=== PATIENT | male | born 1945 | race Caucasian/White ===

== ENCOUNTER 2017-12-20 10:00 | Emergency (ER) | payer MEDICARE, OTHER, SELFPAY ==
[2017-12-20 10:10] VITALS: BP 154/78; PULSE 58; RESP 18; TEMP 36.7; O2SAT 98; BMI 29.2
--- NOTE | 2017-12-20 10:17 | DI.RAD.S_ITS ---
PROCEDURE: XR CHEST 1V INDICATIONS: Chest pain TECHNIQUE: One view of the chest was acquired. COMPARISON: [facility], , CHEST 2 VIEW, 01/07/2016, 15:17. FINDINGS: Surgical changes and devices: None. Lungs and pleura: No pleural effusions or pneumothorax. Lungs are clear. Mediastinum: Mediastinal contours appear normal. Heart size is normal. Bones and chest wall: No suspicious bony lesions. Overlying soft tissues appear unremarkable. IMPRESSION: 1. No acute cardiopulmonary disease. Dictated by: Arben Qureshi M.D. on 12/20/2017 at 10:59 Approved by: Arben Qureshi M.D. on 12/20/2017 at 10:59
--- NOTE | 2017-12-20 10:18 | ED.CHESTPAIN ---
HPI - Chest Pain General Chief Complaint: Chest Pain Stated Complaint: Nausea/Sweating Time Seen by Provider: 12/20/17 10:16 Source: patient Mode of arrival: ambulatory Limitations: no limitations History of Present Illness HPI narrative: 72-year-old male here for evaluation of not feeling well since this morning. Also describes some diaphoresis and nausea but no vomiting. States that he woke up at about 2 o'clock in the morning feeling this way. Woke up again at 4 o'clock in the morning feeling this way. Came into the Urgent Care this morning for evaluation concerned of cardiac issues. He was sent here from the walk-in clinic. States that he feels much better however does still feel ???weak ???no other infection like symptoms. Had a stress test done but that was several years ago. Denied any chest pain this morning. Took nothing for his symptoms. Related Data Home Medications Medication Instructions Recorded Confirmed aspirin 325 mg PO BID 12/20/17 12/20/17 Previous Rx's Medication Instructions Recorded frovatriptan [Frova] 2.5 mg PO SEE INSTRUCTIONS #10 tab 01/05/17 Allergies Allergy/AdvReac Type Severity Reaction Status Date / Time morphine [MORPHINE] AdvReac Mild nausea Verified 12/20/17 10:16 oxycodone [OXYCODONE] AdvReac Mild nausea Verified 12/20/17 10:16 Review of Systems Constitutional Denies chills, Reports fatigue, Denies fever(s), Reports lethargy, Reports malaise and Reports weakness ENT Ears, Nose, Mouth, and Throat: Denies dysphagia Cardiovascular Denies chest pain, Denies irregular heart rhythm, Denies lightheadedness, Denies palpitations, Denies dyspnea, Denies dyspnea on exertion and Denies orthopnea Respiratory Denies cough, Denies dyspnea, Denies dyspnea on exertion and Denies wheezing Gastrointestinal Gastrointestinal: Denies abdominal pain, Denies dysphagia, Denies heartburn, Denies diarrhea, Reports nausea and Denies vomiting Genitourinary Denies hematuria, Denies flank pain, Denies urinary incontinence and Denies urinary urgency Musculoskeletal Denies back pain, Denies muscle weakness, Denies numbness and Denies tingling Integumentary/Breasts Denies pruritus, Denies erythema, Denies rash and Denies wounds Neurologic Denies numbness, Denies tingling and Reports weakness Endocrine Reports fatigue, Denies flushing and Denies palpitations Comments: Diaphoresis Hematologic/Lymphatic Denies easy bruising Allergic/Immunologic Denies wheezing PFSH Family History Brother Age: 68 Heart disease Atrial fibrillation Social History Smoking Status: Never smoker Exam Initial Vital Signs Initial Vital Signs: Vital Signs Temperature 98.1 F 12/20/17 10:10 Pulse Rate 58 L 12/20/17 10:10 Respiratory Rate 18 12/20/17 10:10 Blood Pressure 154/78 H 12/20/17 10:10 Pulse Oximetry 98 12/20/17 10:10 Const General: cooperative and well developed Nutritional Appearance: well nourished Orientation: alert, awake, oriented x3 and not confused Chest Chest: normal inspection of the chest Resp Effort & Inspection: normal respiratory effort, able to speak in complete sentences, no respiratory distress and no use of accessory muscles Auscultation: clear to auscultation bilaterally, no rales, no rhonchi and no wheezes Cardio Rate: bradycardic Rhythm: regular rhythm Heart Sounds: no click, no gallops, no murmurs and no rubs Pulses: normal peripheral pulses GI Inspection: non-distended Palpation: soft, no hepatosplenomegaly, No guarding, No pulsatile mass and No tender Auscultation: normal bowel sounds Skin General: no rashes or lesions noted, No jaundice and No petechiae Neuro General: alert, oriented x3, gait normal and no focal motor deficits Speech: speech normal Motor: strength 5/5 throughout Sensory Exam: no sensory deficits noted Extrem General: full ROM, no clubbing, cyanosis or edema, no pedal edema and no calf tenderness Course Orders Ordered: ED Orders 12/20/17 10:17 XR chest 1V Stat EKG-12 Lead Stat 12/20/17 10:23 B Type Natriuretic Peptide Stat Complete Blood Count AUTO DIFF Stat Comprehensive Metabolic Panel Stat Lipase Stat Troponin with CK Cardiac Panel Stat Discontinued Medications Aspirin (Aspirin Chew) 324 mg PO NOW ONE Stop: 12/20/17 10:18 Last Admin: 12/20/17 10:55 Dose: Vital Signs - 8 hr 12/20/17 10:10 12/20/17 11:44 12/20/17 12:10 Temperature 98.1 F Pulse Rate 58 L 54 L 54 L Respiratory Rate 18 18 15 Blood Pressure 154/78 H Blood Pressure [Left Arm] 152/73 H 149/75 H Pulse Oximetry 98 98 99 MDM - Chest Pain Lab Data Attestation: I reviewed the patient's lab results. Result diagrams: 12/20/17 10:23 12/20/17 10:23 Lab Results 12/20/17 12/20/17 Range/Units 10:23 10:23 WBC 3.3 L (4.5-11.0) X10^3/uL RBC 4.58 (4.5-5.9) X10^6/uL Hgb 15.4 (13.5-17.5) g/dL Hct 43.3 (41-53) % MCV 94.6 (80-100) fL MCH 33.6 (26-34) PG MCHC 35.6 (30-36) % RDW 13.3 (11.6-14.8) % Plt Count 165 (150-400) X10^3/uL Neut % (Auto) 67.9 (50-75) % Lymph % (Auto) 20.5 L (25-40) % Storey % (Auto) 10.7 (3-14) % Eos % (Auto) 0.2 L (2-4) % Baso % (Auto) 0.7 (0-2) % Neut # (Auto) 2300 L (4691-5183) /uL Sodium 138 (137-145) mmol/L Potassium 4.4 (3.4-5.1) mmol/L Chloride 102.0 (98-107) mmol/L Carbon Dioxide 24.0 (22-32) mmol/L BUN 18.0 (9-20) mg/dL Creatinine 0.70 (0.66-1.25) mg/dL Estimated GFR > 60.0 (>60) mL/min BUN/Creatinine Ratio 25.7 H (6-22) Glucose 148 H (80-110) mg/dL Calcium 9.3 (8.4-10.2) mg/dL Total Bilirubin 1.0 (0.2-1.3) mg/dL AST 81 H (17-59) IU/L ALT 73 H (21-72) IU/L Alkaline Phosphatase 59 (38-126) U/L Total Creatine Kinase 191 H (55-170) U/L Troponin I < 0.012 (0.01-0.034) ng/mL B-Natriuretic Peptide 60.9 (<100) Total Protein 7.1 (6.3-8.2) g/dL Albumin 4.4 (3.5-5.0) g/dL Globulin 2.7 (1.7-4.1) g/dL Albumin/Globulin Ratio 1.6 (1.0-2.8) Lipase 79 (23-300) U/L Imaging Data Chest x-ray: Radiologist's impression: No acute cardiopulmonary findings ECG Data Attestation: I personally reviewed and interpreted this ECG as follows: Prior ECG tracings: available for review Interpretation: EKG dated 20 Dec 2017 time 1007 hr Sinus bradycardia Ventricular rate of 54 Normal axis Normal intervals QRS [address] T wave changes Comparison EKG dated 01/08/2016 Sinus rhythm Ventricular rate of 48 Incomplete right bundle branch block Normal QRS No ST T wave changes MDM Narrative Medical decision making narrative: Patient with a negative troponin and unremarkable EKG. Symptoms seem to have started at 2 o'clock this morning which is 6 hr prior to the troponin draw all today. Patient states that his symptoms have improved. He never described any chest pain. Had a discussion with the patient and his regarding his symptoms. Discussed his risks of acute coronary syndrome. We discussed his options to include being admitted to the hospital for further evaluation, stay here in the emergency department for a repeat troponin versus is going home and following up with his primary doctor. Patient states he has a follow-up with his primary doctor on Thursday. He expressed understanding of the risks and benefits of admission versus staying here in the hospital versus going home. I feel that his decision is not unreasonable given his symptoms and his EKG and negative troponin. I did emphasize that he was not 0 risk for acute coronary syndrome. He was given return precautions. He expressed understanding. Him and his expressed agreement with plan. Discharge Plan Departure Patient Disposition: Home, Self-Care Clinical Impression: Fatigue, Diaphoresis Instructions: DI for Acute Coronary Syndrome Activity Restrictions/Additional Instructions: Recommend that you keep your follow-up appointment with your primary doctor on Thursday. You opted to be discharged versus being admitted to the hospital. The discharge instructions were given are for your information regarding acute coronary syndrome. Return to the emergency department for any new symptoms, worsening symptoms, chest pain or any other concerning symptoms Prescriptions: No Action frovatriptan [Frova] 2.5 MG tablet 2.5 mg PO SEE INSTRUCTIONS Qty: 10 RF: 0 aspirin 325 mg Tablet 325 mg PO BID RF: 0
[2017-12-20 10:40] LABS: Add Manual Diff / Slide Review NO; Basophils Percent Auto 0.7 % (0-2); Eosinophils Percent Auto 0.2 % (2-4); Hematocrit 43.3 % (41-53); Hemoglobin 15.4 g/dL (13.5-17.5); Lymphocytes Percent Auto 20.5 % (25-40); Mean Corpuscular HGB Conc 35.6 % (30-36); Mean Corpuscular Hemoglobin 33.6 PG (26-34); Mean Corpuscular Volume 94.6 fL (80-100); Monocytes Percent Auto 10.7 % (3-14); Neutrophils Absolute Auto 2300 /uL (3000-5900); Neutrophils Percent Auto 67.9 % (50-75); Platelet Count 165 X10^3/uL (150-400); Red Blood Cell Count 4.58 X10^6/uL (4.5-5.9); Red Cell Distribution Width 13.3 % (11.6-14.8); White Blood Cell Count 3.3 X10^3/uL (4.5-11.0)
[2017-12-20 10:47] LABS: Alanine Aminotransferase 73 IU/L (21-72); Albumin 4.4 g/dL (3.5-5.0); Albumin Globulin Ratio 1.6 (1.0-2.8); Alkaline Phosphatase 59 U/L (38-126); Aspartate Aminotransferase 81 IU/L (17-59); BUN Creatinine Ratio 25.7 (6-22); Calcium 9.3 mg/dL (8.4-10.2); Creatine Kinase 191 U/L (55-170); Estimated Glomerular Filt Rate > 60.0 mL/min (>60); Globulin 2.7 g/dL (1.7-4.1); Glucose 148 mg/dL (80-110); HEMOLYSIS 38 (0-50); Lipase 79 U/L (23-300); Potassium 4.4 mmol/L (3.4-5.1); Sodium 138 mmol/L (137-145); Total Protein 7.1 g/dL (6.3-8.2)
[2017-12-20 10:54] LABS: B Type Natriuretic Peptide 60.9 (<100)
[2017-12-20 11:34] LABS: Troponin I < 0.012 ng/mL (0.01-0.034)
[2017-12-20 11:44] VITALS: BP 152/73; PULSE 54; RESP 18; O2SAT 98
[2017-12-20 12:10] VITALS: BP 149/75; PULSE 54; RESP 15; O2SAT 99
[2017-12-20 12:32] VITALS: BP 145/80; PULSE 57; RESP 14; O2SAT 98
[2017-12-20 12:50] VITALS: BP 145/80; PULSE 55; RESP 18; O2SAT 98
== END 2017-12-20 12:52 | disposition home or self-care (01) ==
PROVIDERS: Emergency Provider Emergency Medicine; Family Provider Family Medicine; PCP Family Medicine
DX: R53.83 Other fatigue (principal); R61 Generalized hyperhidrosis
CPT/HCPCS: 36591; 71045; 80053; 82550; 82553; 83690; 83880; 84484; 85025; 93005; 99283; 99285

== ENCOUNTER → 2018-04-14 17:31 | Outpatient (CLI) | payer MEDICARE, OTHER, SELFPAY ==
--- NOTE | 2018-04-14 17:33 | DI.MRI.S_ITS ---
PROCEDURE: MR LUMBAR SPINE WO CON INDICATIONS: INJURY OF CAUDA EQUINA TECHNIQUE: Noncontrast sagittal T1 spin echo and T2 fast echo, sagittal STIR, axial T1 and T2 fast spin echo through the lumbar spine. In cases with scoliosis, additional coronal T2 fast spin echo may be performed. COMPARISON: None. FINDINGS: Image quality: Excellent. Alignment and Curvature: There is minimal retrolisthesis of L1 on L2. Bone Marrow: Degenerative endplate signal changes are present. Mild loss of vertebral body height of L1 with no marrow edema, likely chronic. Spinal Cord: Conus medullaris terminates at the L1-L2 level. Visualized cord demonstrates normal signal and size. Paraspinous Soft Tissues: No paravertebral masses. L1-L2: Mild loss of disc height. Moderate disc desiccation. There is posterior disc bulge and disc osteophyte complex. Mild bilateral facet arthropathy and hypertrophy of ligamentum flavum. The central canal is minimally narrowed. Mild bilateral foraminal stenosis. L2-L3: Preserved disc height. Moderate disc desiccation. There is mild posterior disc bulge. Severe bilateral facet arthropathy and moderate hypertrophy of ligamentum flavum. The central canal is moderately narrowed. Mild bilateral foraminal stenosis. L3-L4: Discectomy and posterior fusion. There is mild posterior osteophyte. The central canal is mildly narrowed. No foraminal stenosis. L4-L5: Posterior fusion. Moderate loss of disc height and disc desiccation. There is posterior disc bulge and disc osteophyte complex. The central canal is patent. Mild bilateral foraminal stenosis. L5-S1: Preserved disc height and moderate disc desiccation. There is posterior disc bulge and disc osteophyte complex. Severe bilateral facet arthropathy. The central canal is moderately narrowed. Mild bilateral foraminal stenosis. IMPRESSION: 1. Multilevel degenerative disc disease, facet arthropathy, and postsurgical changes in lumbar spine as described. 2. Moderate central canal stenosis at L2-L3 and L5-S1. 3. Multilevel foraminal stenosis as described. Dictated by: Keenan Renae M.D. on 04/15/2018 at 10:09 Approved by: Keenan Renae M.D. on 04/15/2018 at 11:57
== END ==
PROVIDERS: Family Provider Family Medicine; PCP Family Medicine; Visit Provider Internal Medicine
DX: S34.3XXA Injury of cauda equina, initial encounter (principal); M51.36 Other intervertebral disc degeneration, lumbar region; M48.062 Spinal stenosis, lumbar region with neurogenic claudication; M51.37 Other intervertebral disc degeneration, lumbosacral region; G95.19 Other vascular myelopathies; M48.07 Spinal stenosis, lumbosacral region; Z98.1 Arthrodesis status
CPT/HCPCS: 72148

== ENCOUNTER → 2018-04-19 09:56 | Outpatient (CLI) | payer MEDICARE, OTHER, SELFPAY ==
[2018-04-19 10:35] LABS: Add Manual Diff / Slide Review NO; Basophils Percent Auto 0.8 % (0-2); Hematocrit 49.6 % (41-53); Hemoglobin 17.2 g/dL (13.5-17.5); Lymphocytes Percent Auto 30.3 % (25-40); Mean Corpuscular HGB Conc 34.7 % (30-36); Mean Corpuscular Hemoglobin 32.8 PG (26-34); Mean Corpuscular Volume 94.4 fL (80-100); Monocytes Percent Auto 12.3 % (3-14); Neutrophils Absolute Auto 2300 /uL (3000-5900); Neutrophils Percent Auto 55.6 % (50-75); Platelet Count 232 X10^3/uL (150-400); Red Blood Cell Count 5.25 X10^6/uL (4.5-5.9); Red Cell Distribution Width 13.5 % (11.6-14.8); White Blood Cell Count 4.2 X10^3/uL (4.5-11.0)
== END ==
PROVIDERS: PCP Family Medicine; Visit Provider Neurological Surgery
DX: M54.16 Radiculopathy, lumbar region (principal); M48.062 Spinal stenosis, lumbar region with neurogenic claudication; Z01.818 Encounter for other preprocedural examination
CPT/HCPCS: 36415; 85025; 93005

== ENCOUNTER 2018-08-19 12:38 | Day surgery (SDC) | payer MEDICARE, OTHER, SELFPAY ==
[2018-08-19] MEDS: PROPARACAINE 0.5% OPHTH SOL 2 DROPS EYE-OP (13:14)
[2018-08-19 13:15] VITALS: BMI 29.8
[2018-08-19] MEDS: CATARACT EYE COMPOUND (10 DROPS/SYRINGE) 3 DROPS EYE-OP (13:20)
[2018-08-19 13:21] VITALS: BP 150/88; PULSE 85; RESP 18; TEMP 35.9; O2SAT 97
--- NOTE | 2018-08-19 14:07 | PM.PREOP ---
Pre-operative Note Interval Note History & Physical reviewed/Exam performed by Physician: Yes Changes to H&P: No
[2018-08-19] MEDS: CHONDROIDTIN/SOD HYALURONATE 1.05 ML SYRINGE INTRAOCULA (14:40)
[2018-08-19] MEDS: MOXIFLOXACIN OPHTH DROPS 3 ML BOTTLE 2 DROPS INJ (14:40)
[2018-08-19] MEDS: PHENYLEPHRINE/LIDOCAINE VIAL (OR) 0.2 ML EYE-OP (14:41)
[2018-08-19] MEDS: BALANCED SALT IRRIG SOLN NO.2 500 ML, EPINEPHrine 1 MG IRR (14:42)
[2018-08-19] MEDS: BALANCED SALT IRRIG SOLN NO.2 15 ML IRR (14:43)
[2018-08-19] MEDS: LIDOCAINE 2% INJ SDV 0.5 ML TOP (14:44)
--- NOTE | 2018-08-19 14:54 | PM.OP.1 ---
Procedure & Clinicians Procedure: cataract extraction with intraocular lens implant left Same procedure as scheduled: Yes Indications: Nuclear sclerosis visually significant cataract, left Surgeon: Higinio Vides Operative Notes Procedure in detail: The patient was brought to the operating suite. The correct patient, surgical site and lens were confirmed. 0.5 % tetracaine drops were placed in the left eye. The patient was prepped and draped in the typical sterile manner. A lid speculum was placed in the eye. A paracentesis port was created with a side-port blade. 0.1 mL of 1% preservative free lidocaine with phenylephrine was injected into the anterior chamber. Viscoelastic was injected into the anterior chamber. A 2.6mm keratome was used to create a clear corneal temporal incision. Cystotome and Utrata forceps were used to create a continuous curvilinear capsulorrhexis. Balanced salt solution was used to hydrodissect the nucleus. Phacoemulsification was used to remove the lens. The capsular bag was inflated with viscoelastic. A Oliva ZBOO +21.5D lens was inserted into the capsule. Viscoelastic was removed and the wound hydrated. The wound was found to be leak free and the eye was assessed to be at normal physiologic pressure. 0.1mL Vigamox was injected into the anterior chamber. The lid speculum was removed and the patient left the operating room in excellent condition. Complications: none Condition: stable Disposition: same day surgery
[2018-08-19 15:00] VITALS: BP 153/95; PULSE 63; RESP 16; TEMP 36.3; O2SAT 98
== END 2018-08-19 15:15 ==
PROVIDERS: Family Provider Family Medicine; PCP Family Medicine; Visit Provider Ophthalmology
DX: H25.12 Age-related nuclear cataract, left eye (principal); G43.909 Migraine, unspecified, not intractable, without status migrainosus; I49.8 Other specified cardiac arrhythmias; B39.9 Histoplasmosis, unspecified
CPT/HCPCS: J0171; J2250; J3010

== ENCOUNTER 2018-09-02 13:27 | Day surgery (SDC) | payer MEDICARE, OTHER, SELFPAY ==
[2018-09-02 14:32] VITALS: BP 155/99; PULSE 70; RESP 16; TEMP 36.8; O2SAT 96; BMI 29.8
[2018-09-02] MEDS: PROPARACAINE 0.5% OPHTH SOL 2 DROPS EYE-OP (14:35)
[2018-09-02] MEDS: CATARACT EYE COMPOUND (10 DROPS/SYRINGE) 3 DROPS EYE-OP (14:37)
--- NOTE | 2018-09-02 15:13 | PM.PREOP ---
Pre-operative Note Interval Note History & Physical reviewed/Exam performed by Physician: Yes Changes to H&P: No
[2018-09-02] MEDS: PHENYLEPHRINE/LIDOCAINE VIAL (OR) 0.2 ML EYE-OP (15:30)
[2018-09-02] MEDS: MOXIFLOXACIN OPHTH DROPS 3 ML BOTTLE 2 DROPS INJ (15:30)
[2018-09-02] MEDS: CHONDROIDTIN/SOD HYALURONATE 1.05 ML SYRINGE INTRAOCULA (15:30)
[2018-09-02] MEDS: BALANCED SALT IRRIG SOLN NO.2 500 ML, EPINEPHrine 1 MG IRR (15:31)
[2018-09-02] MEDS: TETRACAINE 0.5% OPHTH DROPS 4 ML 2 DROPS EYE-RIGHT (15:31)
[2018-09-02] MEDS: LIDOCAINE 2% INJ SDV 5 ML INJ (15:32)
--- NOTE | 2018-09-02 15:50 | PM.OP.1 ---
Procedure & Clinicians Procedure: cataract extraction with intraocular lens implant, right Same procedure as scheduled: Yes Indications: 3+nuclear sclerosis, visually significant, right Surgeon: Higinio Vides Click Yes if Unassisted: Yes Anesthesia Type: MAC +/- Operative Notes Procedure in detail: The patient was brought to the operating suite. The correct patient, surgical site and lens were confirmed. 0.5 % tetracaine drops were placed in the right eye. The patient was prepped and draped in the typical sterile manner. A lid speculum was placed in the eye. 2% lidocaine was placed on the eye. A paracentesis port was created with a side-port blade. 0.1 mL of 1% preservative free lidocaine with phenylephrine was injected into the anterior chamber. Viscoelastic was injected into the anterior chamber. A 2.6mm keratome was used to create a clear corneal temporal incision. Cystotome and Utrata forceps were used to create a continuous curvilinear capsulorrhexis. Balanced salt solution was used to hydrodissect the nucleus. A Ray nucleus chopper and phacoemulsification was used to remove the lens. The capsular bag was inflated with viscoelastic. A Oliva ZBOO +21.5D lens was inserted into the capsule. Viscoelastic was removed and the wound hydrated. The wound was found to be leak free and the eye was assessed to be at normal physiologic pressure. 0.1mL Vigamox was injected into the anterior chamber. The lid speculum was removed and the patient left the operating room in excellent condition. Complications: none Condition: stable Disposition: same day surgery
[2018-09-02 16:07] VITALS: BP 157/85; PULSE 71; RESP 16; TEMP 36.7; O2SAT 96
== END 2018-09-02 16:14 ==
LOC: OR 13:30
PROVIDERS: Family Provider Family Medicine; PCP Family Medicine; Visit Provider Ophthalmology
DX: H25.11 Age-related nuclear cataract, right eye (principal)
CPT/HCPCS: J0171; J2250; J3010

== ENCOUNTER → 2018-10-21 16:35 | Outpatient (CLI) | payer MEDICARE, OTHER, SELFPAY | PROVIDERS: Family Provider Family Medicine; PCP Family Medicine; Visit Provider Family Medicine | DX: R19.7 Diarrhea, unspecified (principal) ==

== ENCOUNTER → 2018-10-21 16:42 | Outpatient (CLI) | payer MEDICARE, OTHER, SELFPAY | PROVIDERS: Family Provider Family Medicine; PCP Family Medicine; Visit Provider Family Medicine ==

== ENCOUNTER → 2018-10-22 13:46 | Outpatient (CLI) | payer MEDICARE, OTHER, SELFPAY ==
[2018-10-22 23:15] LABS: Adenovirus F 40/41 Not Detected (Not Detect); Astrovirus Not Detected (Not Detect); Campylobacter Not Detected (Not Detect); Clostridium difficile toxin AB Not Detected (Not Detect); Cryptosporidium Not Detected (Not Detect); Cyclospora cayetanensis Not Detected (Not Detect); Entamoeba histolytica Not Detected (Not Detect); Enteroaggregative E.coli Not Detected (Not Detect); Enteropathogenic E.coli Not Detected (Not Detect); Enterotoxigenic E.coli It/st Not Detected (Not Detect); Giardia lamblia Not Detected (Not Detect); Norovirus GI/GII Not Detected (Not Detect); Plesiomonsa shigelloides Not Detected (Not Detect); Rotavirus A Not Detected (Not Detect); Salmonella Not Detected (Not Detect); Sapovirus Not Detected (Not Detect); Shiga-like toxin-prod E.coli Not Detected (Not Detect); Shigella/Enteroinvasive E.coli Not Detected (Not Detect); Vibrio Not Detected (Not Detect); Vibrio cholerae Not Detected (Not Detect); Yersinia enterocolitica Not Detected (Not Detect)
== END ==
PROVIDERS: PCP Family Medicine; Visit Provider Family Medicine
DX: R19.7 Diarrhea, unspecified (principal)
CPT/HCPCS: 87507

== ENCOUNTER → 2018-10-28 10:06 | Outpatient (CLI) | payer MEDICARE, OTHER, SELFPAY ==
[2018-10-28 11:30] LABS: C-Reactive Protein Quant < 0.5 mg/dL (<1.0)
[2018-10-28 11:32] LABS: Erythrocyte Sedimentation Rate 3 MM/HR (0-15)
[2018-10-31 21:11] LABS: (tTG) Ab, IgA < 1 U/mL
== END ==
PROVIDERS: PCP Family Medicine; Visit Provider Family Medicine
DX: R19.4 Change in bowel habit (principal)
CPT/HCPCS: 36415; 83516; 85651; 86140; 86255

== ENCOUNTER → 2018-12-20 09:50 | Outpatient (CLI) | payer MEDICARE, OTHER, SELFPAY ==
[2018-12-20 11:37] LABS: Add Manual Diff / Slide Review NO; Basophils Absolute Auto 0 /uL (0-100); Eosinophils Absolute Auto 0 /uL (0-450); Eosinophils Percent Auto 0.7 % (2-4); Hematocrit 47.3 % (41-53); Hemoglobin 16.3 g/dL (13.5-17.5); Lymphocytes Absolute Auto 1200 /uL (1100-4500); Lymphocytes Percent Auto 34.5 % (25-40); Mean Corpuscular HGB Conc 34.5 % (30-36); Mean Corpuscular Hemoglobin 33.5 PG (26-34); Monocytes Absolute Auto 500 /uL (0-900); Monocytes Percent Auto 13.3 % (3-14); Neutrophils Absolute Auto 1700 /uL (1500-7000); Neutrophils Percent Auto 50.5 % (50-75); Platelet Count 223 X10^3/uL (150-400); Red Blood Cell Count 4.87 X10^6/uL (4.5-5.9); Red Cell Distribution Width 13.3 % (11.6-14.8); White Blood Cell Count 3.4 X10^3/uL (4.5-11.0)
[2018-12-20 12:03] LABS: Alanine Aminotransferase 61 IU/L (21-72); Albumin 4.5 g/dL (3.5-5.0); Albumin Globulin Ratio 1.6 (1.0-2.8); Alkaline Phosphatase 62 U/L (38-126); Aspartate Aminotransferase 71 IU/L (17-59); BUN Creatinine Ratio 18.6 (6-22); Blood Urea Nitrogen 13 mg/dL (9-20); Calcium 9.6 mg/dL (8.4-10.2); Carbon Dioxide 29 mmol/L (22-32); Chloride 102 mmol/L (98-107); Cholesterol 226 mg/dL (140-199); Estimated Glomerular Filt Rate > 60.0 mL/min (>60); Globulin 2.8 g/dL (1.7-4.1); Glucose 100 mg/dL (80-110); HDL Cholesterol 64 mg/dL (40-60); HEMOLYSIS < 15 (0-50); LDL Cholesterol Calculated 147 mg/dL (<100); Potassium 4.5 mmol/L (3.4-5.1); Sodium 139 mmol/L (137-145); Total Protein 7.3 g/dL (6.3-8.2); Triglycerides 77 mg/dL (35-150)
[2018-12-20 12:34] LABS: Thyroid Stimulating Hormone 1.44 uIU/mL (0.47-4.68)
== END ==
PROVIDERS: PCP Family Medicine; Visit Provider Family Medicine
DX: Z12.5 Encounter for screening for malignant neoplasm of prostate (principal); Z13.220 Encounter for screening for lipoid disorders; Z13.29 Encounter for screening for other suspected endocrine disorder; Z13.6 Encounter for screening for cardiovascular disorders
CPT/HCPCS: 36415; 80053; 80061; 84443; 85025; G0103

== ENCOUNTER → 2020-01-09 11:11 | Outpatient (CLI) | payer MEDICARE, OTHER, SELFPAY ==
[2020-01-09 12:01] LABS: Add Manual Diff / Slide Review NO; Basophils Absolute Auto 0 /uL (0-100); Basophils Percent Auto 0.5 % (0-2); Eosinophils Absolute Auto 0 /uL (0-450); Eosinophils Percent Auto 0.7 % (2-4); Hemoglobin 14.8 g/dL (13.5-17.5); Lymphocytes Absolute Auto 1100 /uL (1100-4500); Lymphocytes Percent Auto 31.6 % (25-40); Mean Corpuscular HGB Conc 35.1 % (30-36); Mean Corpuscular Hemoglobin 34.3 PG (26-34); Mean Corpuscular Volume 97.8 fL (80-100); Monocytes Absolute Auto 400 /uL (0-900); Monocytes Percent Auto 12.1 % (3-14); Neutrophils Absolute Auto 1900 /uL (1500-7000); Neutrophils Percent Auto 55.1 % (50-75); Platelet Count 187 X10^3/uL (150-400); Red Cell Distribution Width 13.1 % (11.6-14.8); White Blood Cell Count 3.5 X10^3/uL (4.5-11.0)
[2020-01-09 12:17] LABS: Alanine Aminotransferase 65 IU/L (<50); Albumin 4.3 g/dL (3.5-5.0); Albumin Globulin Ratio 1.7 (1.0-2.8); Alkaline Phosphatase 46 U/L (38-126); Aspartate Aminotransferase 91 IU/L (17-59); BUN Creatinine Ratio 22.4 (6-22); Blood Urea Nitrogen 17 mg/dL (9-20); Calcium 9.4 mg/dL (8.4-10.2); Carbon Dioxide 25 mmol/L (22-32); Chloride 106 mmol/L (98-107); Cholesterol 177 mg/dL (140-199); Estimated Glomerular Filt Rate > 60.0 mL/min (>60); Globulin 2.6 g/dL (1.7-4.1); Glucose 96 mg/dL (80-110); HDL Cholesterol 72 mg/dL (40-60); HEMOLYSIS < 15 (0-50); LDL Cholesterol Calculated 96 mg/dL (<100); Potassium 4.3 mmol/L (3.4-5.1); Sodium 138 mmol/L (137-145); Total Protein 6.9 g/dL (6.3-8.2); Triglycerides 45 mg/dL (35-150)
[2020-01-09 12:57] LABS: TSH w/ Reflex to FT4 1.88 uIU/mL (0.47-4.68)
== END ==
PROVIDERS: PCP Family Medicine; Referring Provider Family Medicine; Visit Provider Family Medicine
DX: E78.2 Mixed hyperlipidemia (principal); I10 Essential (primary) hypertension
CPT/HCPCS: 36415; 80053; 80061; 84443; 85025

== ENCOUNTER → 2020-08-28 10:35 | Outpatient (CLI) | payer MEDICARE, OTHER, SELFPAY ==
[2020-08-28] MEDS: COVID-19 VACC #1, MRNA(MOD) 100 MCG/0.5 ML VIAL IM (10:41)
== END ==
PROVIDERS: PCP Family Medicine; Visit Provider Internal Medicine
DX: Z23 Encounter for immunization (principal)
CPT/HCPCS: 0011A; 91301

== ENCOUNTER → 2020-09-25 10:38 | Outpatient (CLI) | payer MEDICARE, OTHER, SELFPAY ==
[2020-09-25] MEDS: COVID-19 VACC #2, MRNA(MOD) 100 MCG/0.5 ML VIAL IM (10:47)
== END ==
PROVIDERS: PCP Family Medicine; Visit Provider Internal Medicine
DX: Z23 Encounter for immunization (principal)
CPT/HCPCS: 0012A; 91301

== ENCOUNTER → 2021-03-15 15:25 | Outpatient (CLI) | payer MEDICARE, OTHER, SELFPAY ==
--- NOTE | 2021-03-15 15:28 | DI.RAD.S_ITS ---
PROCEDURE: XR CHEST 2V INDICATIONS: cough TECHNIQUE: 2 views of the chest were acquired. COMPARISON: [facility], CR, XR CHEST 1V, 12/20/2017, 10:21. FINDINGS: Surgical changes and devices: None. Lungs and pleura: Lungs are clear. No pleural effusions or pneumothorax. Mediastinum: There is slight perihilar prominence particularly on the left. Heart size is normal. Bones and chest wall: No suspicious bony abnormalities. Soft tissues appear unremarkable. IMPRESSION: Perihilar prominence particularly on the left. While this could be secondary to rotation, adenopathy cannot be excluded. Recommend clinical correlation and CT chest as indicated for further evaluation. Dictated by: Mari Smith M.D. on 03/15/2021 at 16:25 Approved by: Mari Smith M.D. on 03/15/2021 at 16:27
== END ==
PROVIDERS: PCP Family Medicine; Referring Provider Family Medicine; Visit Provider Family Medicine
DX: R05 Cough (principal)
CPT/HCPCS: 71046

== ENCOUNTER → 2021-03-22 10:50 | Outpatient (CLI) | payer MEDICARE, OTHER, SELFPAY ==
[2021-03-22 11:48] LABS: Hemoglobin 15.3 g/dL (13.5-17.5)
[2021-03-22 12:07] LABS: BUN Creatinine Ratio 21.3 (6-22); Blood Urea Nitrogen 16 mg/dL (9-20); Estimated Glomerular Filt Rate > 60.0 mL/min (>60)
--- NOTE | 2021-03-22 12:36 | DI.CT.S_ITS ---
PROCEDURE: CT CHEST ABDOMEN W CON INDICATIONS: abnormal chest xray TECHNIQUE: After the administration of oral contrast and intravenous contrast, 5 mm thick sections acquired from the lung apices to the iliac crests. 5 mm coronal and sagittal reformats were performed, with additional 7 mm coronal MIP reformats through the lungs. For radiation dose reduction, the following was used: automated exposure control, adjustment of mA and/or kV according to patient size. COMPARISON: [facility], CR, XR CHEST 1V, 12/20/2017, 10:21. [facility], CR, XR CHEST 2V, 03/15/2021, 15:32. FINDINGS: Image quality: Excellent. CHEST: Lungs and pleura: Left hilar prominence seen on the chest x-ray is likely caused by tortuous central pulmonary vasculature. No left hilar mass. No acute air space opacities. Subpleural densities in the lingula and both lower lobes are likely scars and atelectasis. There are small nodules or nodularity along the left major fissure. No pleural effusions or pneumothorax. Central and peripheral airways are patent and normal in caliber. Mediastinum: Heart size is normal. No pericardial effusion. No mediastinal or hilar adenopathy by size criteria. Thoracic aorta and central pulmonary arteries are normal in size. Esophagus is normal in caliber. Small hiatal hernia. Chest wall: No axillary or supraclavicular adenopathy by size criteria. Thyroid gland is normal . ABDOMEN: Solid organs: Liver is normal in size and enhancement. There is hepatic steatosis. Gallbladder is normal. Biliary system is non dilated. Pancreas enhances normally. Spleen is normal in size and enhancement. No adrenal nodules. Kidneys are normal in size and enhancement, without hydronephrosis. There is a 4 mm nonobstructive stone in left kidney and a 4 mm nonobstructive stone in right kidney. Peritoneum and bowel: Mild gastric antral thickening is likely caused by artifact from peristalsis. Bowel loops demonstrate normal wall thickness and caliber. Diverticulosis without diverticulitis. No free fluid or air. Nodes and vessels: No retroperitoneal or mesenteric adenopathy by size criteria. Aorta and inferior vena cava are normal in caliber. Moderate atherosclerotic calcification. Bones: No suspicious bony lesions. No vertebral body compression fractures. There are degenerative and postsurgical changes in lumbar spine. Miscellaneous: No ventral hernias. IMPRESSION: 1. No left perihilar mass. The left hilar prominence seen on chest x-ray is likely secondary to tortuous central pulmonary vasculature. 2. Lingular and both lower lobe scars and atelectasis. 3. Diverticulosis without diverticulitis. 4. Small nonobstructive renal calculi bilaterally. 5. Hepatic steatosis. 6. Small hiatal hernia. Dictated by: Keenan Renae M.D. on 03/22/2021 at 16:10 Approved by: Keenan Renae M.D. on 03/22/2021 at 16:19
== END ==
PROVIDERS: PCP Family Medicine; Referring Provider Family Medicine; Visit Provider Family Medicine
DX: R05 Cough (principal); R93.89 Abnormal findings on diagnostic imaging of other specified body structures; Z01.812 Encounter for preprocedural laboratory examination; J98.4 Other disorders of lung; J98.11 Atelectasis; K76.0 Fatty (change of) liver, not elsewhere classified; N20.0 Calculus of kidney; K57.90 Diverticulosis of intestine, part unspecified, without perforation or abscess without bleeding; K44.9 Diaphragmatic hernia without obstruction or gangrene
CPT/HCPCS: 36415; 71260; 74160; 82565; 84520; 85018

== ENCOUNTER → 2021-04-22 09:42 | Outpatient (CLI) | payer MEDICARE, OTHER, SELFPAY ==
[2021-04-22 11:10] LABS: Add Manual Diff / Slide Review NO; Basophils Absolute Auto 0 /uL (0-100); Basophils Percent Auto 0.6 % (0-2); Eosinophils Absolute Auto 0 /uL (0-450); Eosinophils Percent Auto 1.4 % (2-4); Hematocrit 46.1 % (41-53); Hemoglobin 15.6 g/dL (13.5-17.5); Lymphocytes Absolute Auto 800 /uL (1100-4500); Lymphocytes Percent Auto 29.9 % (25-40); Mean Corpuscular HGB Conc 33.8 % (30-36); Mean Corpuscular Hemoglobin 33.3 PG (26-34); Mean Corpuscular Volume 98.5 fL (80-100); Monocytes Absolute Auto 300 /uL (0-900); Monocytes Percent Auto 11.9 % (3-14); Neutrophils Absolute Auto 1600 /uL (1500-7000); Neutrophils Percent Auto 56.2 % (50-75); Platelet Count 182 X10^3/uL (150-400); Red Blood Cell Count 4.68 X10^6/uL (4.5-5.9); Red Cell Distribution Width 13.4 % (11.6-14.8); White Blood Cell Count 2.8 X10^3/uL (4.5-11.0)
[2021-04-22 12:41] LABS: Alanine Aminotransferase 40 IU/L (<50); Albumin 4.4 g/dL (3.5-5.0); Albumin Globulin Ratio 1.7 (1.0-2.8); Alkaline Phosphatase 59 U/L (38-126); Aspartate Aminotransferase 59 IU/L (17-59); BUN Creatinine Ratio 20.5 (6-22); Bilirubin Total 0.8 mg/dL (0.2-1.3); Blood Urea Nitrogen 15 mg/dL (9-20); Calcium 9.4 mg/dL (8.4-10.2); Carbon Dioxide 30 mmol/L (22-32); Chloride 105 mmol/L (98-107); Cholesterol 201 mg/dL (140-199); Estimated Glomerular Filt Rate > 60.0 mL/min (>60); Globulin 2.6 g/dL (1.7-4.1); Glucose 110 mg/dL (80-110); HDL Cholesterol 81 mg/dL (40-60); HEMOLYSIS < 15 (0-50); LDL Cholesterol Calculated 110 mg/dL (<100); Potassium 4.5 mmol/L (3.4-5.1); Sodium 139 mmol/L (137-145); Triglycerides 52 mg/dL (35-150)
[2021-04-22 13:11] LABS: TSH w/ Reflex to FT4 1.46 uIU/mL (0.47-4.68)
== END ==
PROVIDERS: PCP Family Medicine; Referring Provider Family Medicine; Visit Provider Family Medicine
DX: E78.2 Mixed hyperlipidemia (principal); I10 Essential (primary) hypertension; R74.8 Abnormal levels of other serum enzymes
CPT/HCPCS: 36415; 80053; 80061; 84443; 85025

== ENCOUNTER 2021-11-24 10:05 | Emergency (ER) | payer MEDICARE, OTHER, SELFPAY ==
[2021-11-24 10:12] VITALS: BP 146/88; PULSE 69; RESP 16; TEMP 36.7; O2SAT 98; BMI 28.3
--- NOTE | 2021-11-24 10:20 | PC.NURSE ---
Patient fell hitting face on dock cart. Laceration to bridge of nose and bruising with swelling notted between eyes and right inner eye. Patine not tender upon palpation of C-spine, denies LOC. Reports significant bleeding at time of injury, has slowed down upon arriving to ER. Patient takes full dose aspirin daily. TDAP up to date
--- NOTE | 2021-11-24 12:17 | DI.CT.S_ITS ---
PROCEDURE: CT CERVICAL SPINE WO CON INDICATIONS: fall, hit head, neck pain to palpation TECHNIQUE: Noncontrast 3 mm thick sections acquired from the skull base to the T4 level. Sagittal and coronal reformats were then constructed. For radiation dose reduction, the following was used: automated exposure control, adjustment of mA and/or kV according to patient size. COMPARISON: None. FINDINGS: Image quality: Excellent. Bones: No fractures or dislocations. Visualized superior ribs are intact. Multilevel degenerative disc disease and arthropathy in the mid to lower cervical spine results in reversal the normal cervical lordosis and grade 1 anterior spondylolisthesis at C 3 4. At least moderate central stenosis present C5-6 and C6-7 Soft tissues: Prevertebral soft tissues are normal in thickness. No paravertebral hematomas. No apical pneumothoraces. IMPRESSION: 1. No evidence of fracture or traumatic malalignment. 2. Multilevel degenerative disc disease and arthropathy results in reversal the normal cervical lordosis as well as moderate central stenosis C5-6 and C6-7 Approved by: Shane Iverson M.D. on 11/24/2021 at 12:02
--- NOTE | 2021-11-24 12:17 | DI.CT.S_ITS ---
PROCEDURE: CT HEAD/BRAIN WO CON INDICATIONS: fall, hit head TECHNIQUE: Noncontrast 4.5 mm thick angled axial sections acquired from the foramen magnum to the vertex, with coronal and sagittal reformats. For radiation dose reduction, the following was used: automated exposure control, adjustment of mA and/or kV according to patient size. COMPARISON: None. FINDINGS: Image quality: Excellent. CSF spaces: Basal cisterns are patent. No extra-axial fluid collections. Ventricles are normal in size and shape. Brain: No midline shift. No intracranial masses or hemorrhage. Valle-white matter interface is normal. Moderate cerebral and cerebellar volume loss with multifocal white matter chronic ischemic change noted. Moderate calcified atherosclerotic plaque noted involving the cavernous portions of both internal carotid arteries. Skull and face: Calvarium and visualized facial bones are intact, without suspicious lesions. Comminuted nasal bone fracture with overlying soft tissue hematoma noted. Bilateral hearing aids present. Sinuses: Visualized sinuses and mastoids are clear. IMPRESSION: Comminuted and nasal bone fracture in overlying soft tissue hematoma. No intracranial hemorrhage or mass effect. Approved by: Shane Iverson M.D. on 11/24/2021 at 11:58
[2021-11-24] MEDS: HYDROCODONE/ACET 5/325 TABLET 1 TAB PO (13:02)
--- NOTE | 2021-11-24 14:26 | ED.GENADULT ---
HPI - General Adult General Chief complaint: Nasal Problem Stated complaint: Hit nose on edge of dock cart- thinks broken Time Seen by Provider: 11/24/21 12:11 Mode of arrival: Family Vehicle History of Present Illness HPI narrative: 76-year-old gentleman with a history of asthma, hypertension was stepping off of his boat onto a step, with standing on his shoe lace and when he went to take another step he fell forward hit his nose right side of his forehead and is complaining of neck pain. He has some minor epistaxis from the left side of his nose and some midline tenderness over the cervical spine. He did not lose consciousness. This was absolutely mechanical fall. He otherwise is not complaining of fever, cough, chest pain, palpitations, dyspnea, vomiting, nausea, abdominal pain, headaches. He reports no musculoskeletal injuries or extremity pain were abrasions secondary to this fall. Related Data Home Medications Medication Instructions Recorded Confirmed aspirin 325 mg tablet 325 mg PO BID 12/20/17 01/09/20 frovatriptan 2.5 mg tablet (Frova) 2.5 mg PO ONCE PRN 08/19/18 01/09/20 Previous Rx's Medication Instructions Recorded albuterol sulfate 90 mcg/actuation 2 puff INHALATION Q6H PRN #8.5 g 03/15/21 aerosol inhaler (Proventil HFA) losartan 50 mg tablet See Rx Instructions .ROUTE 10/14/21 .COMPLEX #90 tab hydrocodone 5 mg-acetaminophen 325 1 tab PO Q6-8H PRN #14 tab 11/24/21 mg tablet Allergies Allergy/AdvReac Type Severity Reaction Status Date / Time morphine [MORPHINE] AdvReac Mild nausea Verified 11/24/21 10:15 oxycodone [OXYCODONE] AdvReac Mild nausea Verified 11/24/21 10:15 Review of Systems Review of Systems Narrative: Remainder of complete review of systems is otherwise unremarkable except for that included in the HPI. Patient History Medical History (Updated 11/24/21 @ 14:38 by Aliya Wan MD) Chronic cough Essential hypertension Mixed hyperlipidemia Family History Brother Age: 72 Heart disease Atrial fibrillation Social History marital status: household members: spouse Smoking Status: Former smoker alcohol intake: current (1-2 A DAY ) substance use type: does not use Smoking Status: Former smoker alcohol intake frequency: 3 or more drinks per day Substance Use Type: does not use Exam Initial Vital Signs Initial Vital Signs: Vital Signs Temperature 98.0 F 11/24/21 10:12 Pulse Rate 69 11/24/21 10:12 Respiratory Rate 16 11/24/21 10:12 Blood Pressure 146/88 H 11/24/21 10:12 Pulse Oximetry 98 11/24/21 10:12 General: Healthy appearing, in no acute distress. Able to give a complete and coherent history. Well-nourished well-developed HEENT: Moist mucous membranes, normal sclera with reactive pupils, contusion over the right brow, small laceration over the bridge of his nose and just lateral to the nose from his eyeglasses. Slightly displaced nasal septum with minor bleeding from the left nare. Contusion to the buccal surface of the upper lip without overt laceration or dental injury her Neck: Tender along the midline cervical spine C3-C5 with trapezius muscle spasm and tenderness into the occipital insertions bilaterally Respiratory: Lungs are clear to auscultation, no wheezing no rales no rhonchi. Full and symmetrical air movement Cardiac: Regular rate and rhythm no murmurs no bruits Abdomen: Soft, nontender, good bowel tones, no flank pain Skin: Warm and dry, no rashes Neurologic: Grossly neurologically intact with no obvious asymmetries or abnormalities Extremities: No trauma, well perfused, no complaints of shoulder clavicular pain with range of motion and palpation. Psych: Cooperative, appropriate insight and affect Course Orders Ordered: ED Orders 11/24/21 12:17 CT cervical spine wo con Stat CT head/brain wo con Stat Discontinued Medications Hydrocodone Bitart/Acetaminophen (Hydrocodone/Acet 5/325 Tablet) 1 tab PO NOW ONE Stop: 11/24/21 12:18 Last Admin: 11/24/21 13:02 Dose: 1 tab Documented by: SOPHIE Vital Signs Vital signs: Vital Signs - 8 hr 11/24/21 10:12 Temperature 98.0 F Pulse Rate 69 Respiratory Rate 16 Blood Pressure 146/88 H Pulse Oximetry 98 Medical Decision Making Imaging Data CT scan - head: Radiologist's Impression: FINDINGS:? Image quality:? Excellent.? ? CSF spaces:? Basal cisterns are patent.? No extra-axial fluid collections.? Ventricles are normal in size and shape.? ? Brain:? No midline shift.? No intracranial masses or hemorrhage.? Valle-white matter interface is normal.? Moderate cerebral and cerebellar volume loss with multifocal white matter chronic ischemic change noted.? Moderate calcified atherosclerotic plaque noted involving the cavernous portions of both internal carotid arteries.? ? Skull and face:? Calvarium and visualized facial bones are intact, without suspicious lesions.? Comminuted nasal bone fracture with overlying soft tissue hematoma noted.? Bilateral hearing aids present. ? Sinuses:? Visualized sinuses and mastoids are clear.? ? IMPRESSION:? ? Comminuted and nasal bone fracture in overlying soft tissue hematoma.? No intracranial hemorrhage or mass effect. ? ? ? Approved by: Shane Iverson M.D. on 11/24/2021 at 11:58? CT - cervical spine: Radiologist's Impression: FINDINGS:? Image quality:? Excellent.? ? Bones:? No fractures or dislocations.? Visualized superior ribs are intact.? Multilevel degenerative disc disease and arthropathy in the mid to lower cervical spine results in reversal the normal cervical lordosis and grade 1 anterior spondylolisthesis at C 3 4. At least moderate central stenosis present C5-6 and C6-7 ? Soft tissues:? Prevertebral soft tissues are normal in thickness.? No paravertebral hematomas.? No apical pneumothoraces.? ? ? IMPRESSION:? ? 1. No evidence of fracture or traumatic malalignment.? ? 2. Multilevel degenerative disc disease and arthropathy results in reversal the normal cervical lordosis as well as moderate central stenosis C5-6 and C6-7 ? Approved by: Shane Iverson M.D. on 11/24/2021 at 12:02? MDM Narrative Medical decision making narrative: 76-year-old gentleman who was standing on his own shoe lace and ended up falling a couple of steps off his boat onto the dock. He has a comminuted nasal bone fracture epistaxis is controlled. There is a contusion over the right side of his forehead. There is no intracranial hemorrhage in no cervical spine injury. Discharge Plan Departure Patient Disposition: Home Clinical Impression: Fall (on) (from) other stairs and steps, initial encounter Closed fracture nasal bone Qualifiers: Encounter type: initial encounter Qualified Code(s): S02.2XXA - Fracture of nasal bones, initial encounter for closed fracture Instructions: DI for Nose Fracture Activity Restrictions/Additional Instructions: Thank you for coming in today You did break your nose and you may need further treatment. If it is significantly deformed after the healing has gone down, please contact [facility] ear nose and throat at [phone] for further evaluation[address] The CT scan of your head and of your cervical spine were reassuring. Aside from the broken nose, there is no additional injury. I would expect that you have increasing pain and also to places over the next 24-48 hours. Using 400 mg of ibuprofen (2 [id number] pills) and 1 Tylenol every 6 hours can be very helpful in controlling pain. For severe pain you can do 2 ibuprofen and 1 hydrocodone. If you choose to use hydrocodone, remember that narcotics do cause constipation and you may also want to take a stool softener. [facility] would If you find new issues or additional concerns, please feel free to return to the emergency department Prescriptions: New hydrocodone-acetaminophen 5-325 mg tablet 1 tab PO Q6-8H PRN (Reason: pain) Qty: 14 0RF No Action albuterol sulfate [Proventil HFA] 90 mcg/actuation HFA aerosol inhaler 2 puff inhalation Q6H PRN (Reason: shortness of breath or wheezing) Qty: 8.5 1RF losartan 50 mg tablet See Rx Instructions .ROUTE .COMPLEX Qty: 90 3RF Dose Instruction: take 1 tablet by mouth once daily Rx Instructions: take 1 tablet by mouth once daily frovatriptan [Frova] 2.5 mg tablet 2.5 mg PO ONCE PRN (Reason: Headache) 0RF aspirin 325 mg Tablet 325 mg PO BID 0RF Referrals: Demetrius Morales MD [Primary Care Provider] -
[2021-11-24 14:47] VITALS: BP 146/70; PULSE 53; RESP 17; O2SAT 98
== END 2021-11-24 14:48 | disposition home or self-care (01) ==
PROVIDERS: Emergency Provider Emergency Medicine; PCP Family Medicine
DX: S02.2XXA Fracture of nasal bones, initial encounter for closed fracture (principal); Z87.891 Personal history of nicotine dependence; W10.9XXA Fall (on) (from) unspecified stairs and steps, initial encounter; Y93.89 Activity, other specified; Y92.89 Other specified places as the place of occurrence of the external cause; Z88.5 Allergy status to narcotic agent
CPT/HCPCS: 70450; 72125; 99284

== ENCOUNTER → 2022-04-03 15:58 | Outpatient (CLI) | payer MEDICARE, OTHER, SELFPAY ==
--- NOTE | 2022-04-03 16:02 | DI.MRI.S_ITS ---
PROCEDURE: MR LUMBAR SPINE WO CON INDICATIONS: 76-year-old male with progressive lower extremity weakness TECHNIQUE: Noncontrast sagittal T1 spin echo and T2 fast echo, sagittal STIR, and T2 fast spin echo through the lumbar spine. In cases with scoliosis, additional coronal T2 fast spin echo may be performed. COMPARISON: [facility], , MR LUMBAR SPINE WO CON, 04/14/2018, 18:05. FINDINGS: Image quality: Excellent. Alignment and Curvature: There is normal bony alignment. Bone Marrow: There have been decompressive laminectomies at L3 and L4. Interbody fusion at L2-3 and L3-4 as well as posterolateral fusion with lauren and screw instrumentation extending from L2 through L4 Spinal Cord: Conus medullaris terminates at the L1 level. Visualized cord demonstrates normal signal and size. Paraspinous Soft Tissues: No paravertebral masses. T12-L1: Disc space narrowing with circumferential disc bulge and hypertrophic facet joints results in mild to moderate central stenosis moderate left foraminal stenosis. L1-L2: Disc space narrowing with circumferential disc bulge and hypertrophic facet joints present. Mild central stenosis. Severe left and no right foraminal stenosis. L2-L3: Discectomy and fusion. No central stenosis present. No foraminal stenosis L3-L4: Normal appearance. L4-L5: Disc space narrowing and circumferential disc bulge with decompressive laminectomy. Moderate right and mild left foraminal stenosis. L5-S1: Disc height is maintained. Circumferential disc bulge and hypertrophic facet joints results in moderate to severe central stenosis. Severe bilateral foraminal stenosis. IMPRESSION: 1. Multilevel degenerative disc disease and arthropathy results in varying degrees of central and foraminal stenosis including moderate to severe central stenosis and severe bilateral foraminal stenosis at L5-S1, increased from the prior exam 2. Mid lumbar spine decompression, discectomy and fusion with posterior lauren and screw instrumentation in place Approved by: Shane Iverson M.D. on 04/03/2022 at 17:44
== END ==
PROVIDERS: PCP Family Medicine; Referring Provider Family Medicine; Visit Provider Family Medicine
DX: M51.36 Other intervertebral disc degeneration, lumbar region (principal); M48.00 Spinal stenosis, site unspecified; R53.1 Weakness; Z98.890 Other specified postprocedural states; M48.061 Spinal stenosis, lumbar region without neurogenic claudication; M47.816 Spondylosis without myelopathy or radiculopathy, lumbar region; Z98.1 Arthrodesis status
CPT/HCPCS: 72148

== ENCOUNTER → 2022-06-02 09:32 | Outpatient (CLI) | payer MEDICARE, OTHER, SELFPAY ==
[2022-06-02 10:57] LABS: Appearance Urine UA CLEAR; Bilirubin Urine UA NEGATIVE (NEGATIVE); Color Urine UA YELLOW; Glucose Urine UA NEGATIVE (Negative); Ketones Urine UA NEGATIVE (NEGATIVE); Leukocyte Esterase Urine UA NEGATIVE (NEGATIVE); Nitrite Urine UA NEGATIVE (Negative); Occult Blood Urine UA NEGATIVE (Negative); Protein Urine UA NEGATIVE (Negative); Urobilinogen Urine UA 0.2 E.U./dL (0.2)
[2022-06-02 11:01] LABS: Add Manual Diff / Slide Review NO; Basophils Absolute Auto 0 /uL (0-100); Basophils Percent Auto 0.8 % (0-2); Eosinophils Absolute Auto 100 /uL (0-450); Eosinophils Percent Auto 3.2 % (2-4); Hematocrit 44.2 % (41-53); Hemoglobin 15.1 g/dL (13.5-17.5); Lymphocytes Absolute Auto 1100 /uL (1100-4500); Lymphocytes Percent Auto 34.2 % (25-40); Mean Corpuscular HGB Conc 34.2 % (30-36); Mean Corpuscular Hemoglobin 32.4 PG (26-34); Mean Corpuscular Volume 94.8 fL (80-100); Monocytes Absolute Auto 300 /uL (0-900); Monocytes Percent Auto 11.1 % (3-14); Neutrophils Absolute Auto 1600 /uL (1500-7000); Neutrophils Percent Auto 50.7 % (50-75); Platelet Count 227 X10^3/uL (150-400); Red Blood Cell Count 4.66 X10^6/uL (4.5-5.9); Red Cell Distribution Width 13.3 % (11.6-14.8); White Blood Cell Count 3.2 X10^3/uL (4.5-11.0)
[2022-06-02 11:26] LABS: Alanine Aminotransferase 24 IU/L (<50); Albumin 4.1 g/dL (3.5-5.0); Albumin Globulin Ratio 1.5 (1.0-2.8); Alkaline Phosphatase 64 U/L (38-126); Aspartate Aminotransferase 37 IU/L (17-59); BUN Creatinine Ratio 16.7 (6-22); Bilirubin Total 0.6 mg/dL (0.2-1.3); Blood Urea Nitrogen 13 mg/dL (9-20); Calcium 9.1 mg/dL (8.4-10.2); Carbon Dioxide 25 mmol/L (22-32); Chloride 104 mmol/L (98-107); Cholesterol 196 mg/dL (140-199); Estimated Glomerular Filt Rate > 60 mL/min (>60); Globulin 2.8 g/dL (1.7-4.1); Glucose 98 mg/dL (80-110); HDL Cholesterol 51 mg/dL (40-60); HEMOLYSIS < 15 (0-50); LDL Cholesterol Calculated 124 mg/dL (<100); Potassium 4.4 mmol/L (3.4-5.1); Sodium 139 mmol/L (137-145); Total Protein 6.9 g/dL (6.3-8.2); Triglycerides 106 mg/dL (35-150)
[2022-06-02 11:44] LABS: Bacteria Urine None Seen; RBC Urine 0-1/HPF (0-5/HPF); WBC Urine 0-1/HPF (0-5/HPF)
[2022-06-02 11:56] LABS: Prostate Specific Antigen 0.877 ng/mL (0.10-4.00)
[2022-06-02 11:59] LABS: TSH w/ Reflex to FT4 1.35 uIU/mL (0.47-4.68)
== END ==
PROVIDERS: PCP Family Medicine; Referring Provider Family Medicine; Visit Provider Family Medicine
DX: E78.2 Mixed hyperlipidemia (principal); M48.00 Spinal stenosis, site unspecified; I10 Essential (primary) hypertension; R74.8 Abnormal levels of other serum enzymes; N40.0 Benign prostatic hyperplasia without lower urinary tract symptoms
CPT/HCPCS: 36415; 80053; 80061; 81001; 84153; 84443; 85025

== ENCOUNTER → 2022-10-15 18:28 | Outpatient (CLI) | payer MEDICARE, OTHER, SELFPAY ==
--- NOTE | 2022-10-15 18:30 | DI.MRI.S_ITS ---
PROCEDURE: MR KNEE RT WO CON INDICATIONS: Suspected meniscal tear R knee due to injury TECHNIQUE: Noncontrast sagittal PD fast spin echo and T2 fast spin echo with fat saturation, sagittal 3-D FLASH with fat saturation; coronal T1 spin echo and PD fast spin echo with fat saturation, and axial PD fast spin echo with fat saturation through the knee. COMPARISON: None. FINDINGS: Image quality: Excellent. Menisci: There is linear oblique and amorphous high signal intensity within the middle and peripheral thirds of the medial meniscal body and posterior horn without definite articular surface extension. Lateral meniscus demonstrates linear oblique high T2 signal intensity within the inner, middle, and peripheral thirds of the body, demonstrating inferior articular surface extension, indicating oblique tearing. Cruciate ligaments: The anterior and posterior cruciate ligaments appear intact. Medial structures: The medial collateral ligament appears intact. Visualized portions of the pes anserinus tendons appear normal. No abnormal bursal fluid. Lateral structures: The lateral collateral ligament, long and short heads of the biceps femoris tendon appear intact. The popliteus tendon appears normal. Iliotibial band appears normal. Anterior structures: The quadriceps and patellar tendons appear intact. There is mild T2 signal elevation within the quadriceps and patellar tendons at the patellar insertion sites. Patellar alignment is normal. No femoral trochlear dysplasia or ventral trochlear prominence. No edema in the infrapatellar fat pad. Bones and cartilage: No bone marrow contusions or fractures. Mild tricompartmental periarticular osteophyte formation. Severe articular cartilage loss diffusely overlies the weight-bearing aspects of the medial femoral condyle and medial tibial plateau. Mild articular cartilage loss overlies the medial and lateral patellar facets. Joint space: There is physiol a small knee joint effusion. Trace Castillo's cyst. Normal appearing synovial plicae are incidentally noted. IMPRESSION: 1. Tricompartmental osteoarthritis with associated articular cartilage loss. 2. Lateral meniscal tearing. 3. Myxoid degeneration of the medial meniscus without definite superimposed tear. 4. Mild quadriceps and patellar tendinopathy. 5. Small knee joint effusion and Castillo's cyst. Dictated by: Concetta Mayberry M.D. on 10/16/2022 at 9:30 Approved by: Concetta Mayberry M.D. on 10/16/2022 at 9:32
== END ==
PROVIDERS: PCP Family Medicine; Referring Provider Physician Assistant; Visit Provider Physician Assistant
DX: S83.281A Other tear of lateral meniscus, current injury, right knee, initial encounter (principal); M23.91 Unspecified internal derangement of right knee; M17.0 Bilateral primary osteoarthritis of knee; M25.461 Effusion, right knee; M71.21 Synovial cyst of popliteal space [Baker], right knee
CPT/HCPCS: 73721

== ENCOUNTER → 2023-06-04 10:42 | Outpatient (CLI) | payer MEDICARE, OTHER, SELFPAY ==
[2023-06-04 11:08] LABS: Add Manual Diff / Slide Review NO; Basophils Absolute Auto 0 /uL (0-100); Basophils Percent Auto 1.1 % (0-2); Eosinophils Absolute Auto 100 /uL (0-450); Eosinophils Percent Auto 2.9 % (2-4); Hematocrit 44.8 % (41-53); Hemoglobin 15.4 g/dL (13.5-17.5); Lymphocytes Absolute Auto 1400 /uL (1100-4500); Lymphocytes Percent Auto 35.2 % (25-40); Mean Corpuscular HGB Conc 34.3 % (30-36); Mean Corpuscular Hemoglobin 32.6 PG (26-34); Monocytes Absolute Auto 400 /uL (0-900); Monocytes Percent Auto 10.2 % (3-14); Neutrophils Absolute Auto 2000 /uL (1500-7000); Neutrophils Percent Auto 50.6 % (50-75); Platelet Count 216 X10^3/uL (150-400); Red Blood Cell Count 4.71 X10^6/uL (4.5-5.9); Red Cell Distribution Width 13.4 % (11.6-14.8); White Blood Cell Count 3.9 X10^3/uL (4.5-11.0)
[2023-06-04 11:36] LABS: Alanine Aminotransferase 20 IU/L (<50); Albumin 4.4 g/dL (3.5-5.0); Albumin Globulin Ratio 1.8 (1.0-2.8); Alkaline Phosphatase 63 U/L (38-126); Aspartate Aminotransferase 34 IU/L (17-59); BUN Creatinine Ratio 19.5 (6-22); Bilirubin Total 0.9 mg/dL (0.2-1.3); Blood Urea Nitrogen 15 mg/dL (9-20); Calcium 9.7 mg/dL (8.4-10.2); Carbon Dioxide 25 mmol/L (22-32); Chloride 103 mmol/L (98-107); Cholesterol 181 mg/dL (140-199); Estimated Glomerular Filt Rate > 60 mL/min (>60); Globulin 2.5 g/dL (1.7-4.1); Glucose 95 mg/dL (80-110); HDL Cholesterol 64 mg/dL (40-60); HEMOLYSIS < 15 (0-50); LDL Cholesterol Calculated 104 mg/dL (<100); Potassium 4.6 mmol/L (3.4-5.1); Sodium 138 mmol/L (137-145); Total Protein 6.9 g/dL (6.3-8.2); Triglycerides 67 mg/dL (35-150)
[2023-06-04 12:01] LABS: TSH w/ Reflex to FT4 1.85 uIU/mL (0.47-4.68)
== END ==
PROVIDERS: PCP Family Medicine; Referring Provider Family Medicine; Visit Provider Family Medicine
DX: I10 Essential (primary) hypertension (principal); E78.2 Mixed hyperlipidemia
CPT/HCPCS: 36415; 80053; 80061; 84443; 85025

== ENCOUNTER → 2023-08-13 12:11 | Outpatient (CLI) | payer MEDICARE, OTHER, SELFPAY ==
[2023-08-13 14:41] LABS: Alanine Aminotransferase 19 IU/L (<50); Albumin 4.2 g/dL (3.5-5.0); Alkaline Phosphatase 63 U/L (38-126); Aspartate Aminotransferase 36 IU/L (17-59); Bilirubin Total 0.7 mg/dL (0.2-1.3); Bilirubin Unconjugated 0.4 mg/dL (0.0-1.1); Globulin 2.1 g/dL (1.7-4.1); HEMOLYSIS < 15 (0-50); Total Protein 6.3 g/dL (6.3-8.2)
== END ==
PROVIDERS: PCP Family Medicine; Referring Provider Family Medicine; Visit Provider Family Medicine
DX: T88.7XXA Unspecified adverse effect of drug or medicament, initial encounter (principal)
CPT/HCPCS: 36415; 80076

== ENCOUNTER → 2024-08-01 14:13 | Outpatient (CLI) | payer MEDICARE, OTHER, SELFPAY ==
--- NOTE | 2024-08-01 14:15 | DI.RAD.S_ITS ---
PROCEDURE: XR SHOULDER RT MIN 2V INDICATIONS: shoulder pain TECHNIQUE: 3 views of the shoulder were acquired. COMPARISON: None. FINDINGS: Severe glenohumeral osteoarthritis with remodeling of the glenoid and humeral head as well as a large osteophyte at the inferior-medial humeral head margin. The acromioclavicular joint is preserved. No acute fracture or dislocation. The visualized right hemithorax is within normal limits. IMPRESSION: Severe glenohumeral osteoarthritis. Dictated by: Devan Bautista M.D. on 08/02/2024 at 14:58 Approved by: Devan Bautista M.D. on 08/02/2024 at 15:00
--- NOTE | 2024-08-01 14:15 | DI.RAD.S_ITS ---
PROCEDURE: XR SHOULDER LT MIN 2V INDICATIONS: shoulder pain TECHNIQUE: 3 views of the shoulder were acquired. COMPARISON: None. FINDINGS: No acute fracture or dislocation. Severe glenohumeral osteoarthritis with remodeling of the glenoid and a large osteophyte at the inferior-medial humeral head margin. Possible 1.9 cm intra-articular body at the subcoracoid recess. The acromioclavicular joint is preserved. The visualized left hemithorax is within normal limits. IMPRESSION: Severe left glenohumeral osteoarthritis. Dictated by: Devan Bautista M.D. on 08/02/2024 at 15:00 Approved by: Devan Bautista M.D. on 08/02/2024 at 15:01
== END ==
PROVIDERS: PCP Family Medicine; Referring Provider Family Medicine; Visit Provider Family Medicine
DX: M19.011 Primary osteoarthritis, right shoulder (principal); M19.012 Primary osteoarthritis, left shoulder; M25.519 Pain in unspecified shoulder
CPT/HCPCS: 73030

== ENCOUNTER 2024-08-10 07:26 | Day surgery (SDC) | payer MEDICARE, OTHER, SELFPAY ==
--- NOTE | 2024-08-09 18:45 | P.OP_ITS ---
Operative Date/Time/Diagnoses Date of procedure: 08/10/24 Time of procedure: 10:30 Pre-op diagnosis: Dermatachalsis Post-op diagnosis: same Procedure & Clinicians Procedure: Date of service: 08/10/2024 Preoperative diagnoses: 1. 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 Atrial arrhythmia 4. Histoplasmosis 5. migraine 6. History of spinal fusion 7. Bilateral lower lid ectropion Postoperative diagnoses: 1. Bilateral upper lid dermatochalasis 2.Bilateral lower eyelid horizontal shortening 3. bilateral lower eyelid punctal probe and 3 snip procedure Procedure: Bilateral upper blepharoplasty.bilateral lower lid functional ectropion repair Surgeon: Codie Storey MD Complications: none Specimen: None Blood loss: Less than 3 mL Anesthesia: Local infiltration with monitored standby. Anesthesiologist: Pantera Su M.D. Indications: Bilateral upper lids obstructing superior vision. Preoperative external photographs taken and loss of vision to within 2 mm of marginal light reflex. Functional surgery. Bilateral lower lid laxity with greater than 10 mm snap test. Multiple inclusion cysts. 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 Needs bilateral lower lid horizontal shortenings and punctal 3 snip with probe.Has underlying facial asymmetry. Takes 281 mg aspirin a day which was stopped 5 days prior to surgery. Procedure: In the preoperative holding area the amount skin and subcutaneous tissue to be removed was marked with indelible ink. The contours were carefully checked for symmetry and planned procedure discussed with the patient. The patient was taken to the operating room. IV sedation was given. Proparacaine drops were placed in both eyes for comfort. Local infiltration of anesthetic 2.5 cc into each upper lid, consisting of 1% xylocaine with epinephrine, normal saline and 1 cc hyluronidase was placed. This was then supplemented with full strength 2% xylocaine with epinephrine, 0.5% bupivacaine, and 1 cc hyalurondase. The face was prepped in an open manner. Attention was placed to the right upper lid. Using the previous grewal a number 15. -Otilio blade was used to incise a skin muscle flap. The flap was lifted and removed. Cautery was applied as needed. Contouring of the muscle belly was also performed. Exploration of the nasal and preoperneurotic fat pads were performed removal and contouring with hemostat and scissors as well as cautery were performed. The lid was then closed with running and interrupted 6 0 Vicryl sutures. Same procedure was repeated for the left upper lid. The Betadine was removed. Maxitrol ointment was placed to suture line. She returned to recovery room in stable condition. Instructions for postoperative cold packs were reviewed. Preoperative diagnosis: 1. Bilateral ectropion 2. Nasolacrimal duct obstruction. Postoperative diagnosis: Status post ectropion repair with horizontal lid shortening and punctal surgery. 3. Anesthesia local with monitored standby. 4. Blood loss: Less than 3 cc 5. Specimen: None Operative summary: Patient presents with excessive irritation and tearing from exposure due to bilateral lower lid laxity malposition the of the lacrimal puncta which were also closed. The patient has failed conservative measures including lubrication and antibiotic ointment and desires surgery to improve these symptoms. The patient is taken to the operating room and positioned. Monitoring is performed. Local anesthetic consisting 1% xylocaine mixed with BSS and 1 cc of hyulronidase is placed through the inferior lid both medial inferior and laterally. To have cc is given to each lid. This is then supplemented with 2% xylocaine with epinephrine mixed half and half with 0.5% Marcaine with 1 cc of hyulronidase for pain relief and hemostasis. Good anesthesia was obtained. Attention was placed to the right lower lid. A punctal dilator was used to enlarge the punctum. It was then probed to the nose. Tenotomy scissors were used to make a 3 snip procedure to enlarge the punctum permanently. The double- arm suture was then placed through and through the lid and externalized and closed on the external surface. Attention was placed to the lateral canthus. A 15. Bard-Otilio blade was used to make an incision for 1 cm. The periosteum was exposed. Cautery was used as needed. The inferior canthal tendon was lysed with scissors. A tarsal strip was formed with clearance of the anterior and posterior lamella and any exposed lashes. Minimal shortening was performed. The strip was then transected with 5.0 Mersilene type suture which was placed double-armed through the periosteum and tied with multiple knots at the orbital rim. The outer tarsus and lid was then closed with 6 0 interrupted sutures. The procedure was repeated on the left side in identical fashion. There was minimal bleeding. The patient returned to the recovery room in good condition. Sutures will be removed in the office in approximately 10 days. Codie Storey MD. Same procedure as scheduled: Yes Surgeon: Codie Storey Click Yes if Unassisted: Yes Anesthesia Type: MAC +/- Operative Notes Closure Type: primary Complications: none Post-operative Condition: stable Disposition: PACU
--- NOTE | 2024-08-09 18:45 | PM.PREOP ---
Pre-operative Note COVID-19 COVID-19 status: Not tested Interval Note History & Physical reviewed/Exam performed by Physician: Yes Changes to H&P: No
[2024-08-10 08:53] VITALS: BMI 27.9
[2024-08-10 09:02] VITALS: BP 129/74; PULSE 60; RESP 17; TEMP 36.2; O2SAT 97
[2024-08-10] MEDS: LACTATED RINGERS 1,000 ML 42 ML IV (09:11)
[2024-08-10] MEDS: NEOMYCIN/POLY/DEX OPHTH OINT 1 APPLIC EYE-BOTH (10:19)
[2024-08-10] MEDS: PROPARACAINE 0.5% OPHTH SOL 2 DROPS EYE-BOTH (10:20)
[2024-08-10] MEDS: LIDOCAINE 1% W/EPI 3 ML, SODIUM CHLORIDE 0.9% 2 ML, HYALURONIDASE 150 UNIT INJ (10:21)
[2024-08-10] MEDS: BUPIVACAINE 0.5% (PF) 10 ML VIAL INJ (10:24)
[2024-08-10] MEDS: LIDOCAINE 2% W/EPI INJ 20 ML VIAL INJ (10:25)
[2024-08-10] MEDS: HYALURONIDASE 150 UNIT/ML VIAL (AMPHADASE) INJ (10:25)
[2024-08-10] MEDS: ACETAMINOPHEN IV 1,000 MG/100 ML VIAL 400 MG IV (11:33)
[2024-08-10] MEDS: LIDOCAINE 1% W/EPI 20ML 20 ML INJ (11:44)
[2024-08-10 12:15] VITALS: BP 94/65; PULSE 72; RESP 18; TEMP 36.4; O2SAT 96
[2024-08-10 12:21] VITALS: BP 104/71; PULSE 69; RESP 15; TEMP 36.4; O2SAT 96
[2024-08-10 12:29] VITALS: BP 96/65; PULSE 66; RESP 15; TEMP 36.4; O2SAT 96
[2024-08-10 13:00] VITALS: BP 131/72; PULSE 61; RESP 17; TEMP 36.2; O2SAT 98
== END 2024-08-10 13:10 | disposition home or self-care (01) ==
PROVIDERS: PCP Family Medicine; Referring Provider Ophthalmology; Visit Provider Ophthalmology
PROC: (CPT 67917; principal; 2024-08-10 09:45)
DX: H02.834 Dermatochalasis of left upper eyelid (principal); H02.831 Dermatochalasis of right upper eyelid; H02.102 Unspecified ectropion of right lower eyelid; H02.105 Unspecified ectropion of left lower eyelid
CPT/HCPCS: 67917; 15823; J0131; J2704; J3470

== ENCOUNTER → 2024-08-15 10:34 | Outpatient (CLI) | payer MEDICARE, OTHER, SELFPAY ==
[2024-08-15 11:14] LABS: Add Manual Diff / Slide Review NO; Basophils Absolute Auto 0 /uL (0-100); Eosinophils Absolute Auto 200 /uL (0-450); Eosinophils Percent Auto 4.2 % (2-4); Hemoglobin 15.8 g/dL (13.5-17.5); Lymphocytes Absolute Auto 1200 /uL (1100-4500); Lymphocytes Percent Auto 26.9 % (25-40); Mean Corpuscular HGB Conc 34.5 % (30-36); Mean Corpuscular Hemoglobin 33.4 PG (26-34); Mean Corpuscular Volume 96.9 fL (80-100); Monocytes Absolute Auto 400 /uL (0-900); Monocytes Percent Auto 9.5 % (3-14); Neutrophils Absolute Auto 2600 /uL (1500-7000); Neutrophils Percent Auto 58.4 % (50-75); Platelet Count 236 X10^3/uL (150-400); Red Blood Cell Count 4.74 X10^6/uL (4.5-5.9); Red Cell Distribution Width 13.2 % (11.6-14.8); White Blood Cell Count 4.4 X10^3/uL (4.5-11.0)
[2024-08-15 11:46] LABS: Alanine Aminotransferase 25 IU/L (<50); Albumin 4.4 g/dL (3.5-5.0); Alkaline Phosphatase 54 U/L (38-126); Aspartate Aminotransferase 39 IU/L (17-59); BUN Creatinine Ratio 23.2 (6-22); Bilirubin Total 0.9 mg/dL (0.2-1.3); Blood Urea Nitrogen 19 mg/dL (9-20); Calcium 9.5 mg/dL (8.4-10.2); Carbon Dioxide 27 mmol/L (22-32); Chloride 104 mmol/L (98-107); Cholesterol 199 mg/dL (140-199); Estimated Glomerular Filt Rate > 60 mL/min (>60); Globulin 2.2 g/dL (1.7-4.1); Glucose 100 mg/dL (80-110); HDL Cholesterol 66 mg/dL (40-60); HEMOLYSIS < 15 (0-50); LDL Cholesterol Calculated 118 mg/dL (<100); Potassium 4.5 mmol/L (3.4-5.1); Sodium 137 mmol/L (137-145); Total Protein 6.6 g/dL (6.3-8.2); Triglycerides 76 mg/dL (35-150)
[2024-08-15 12:14] LABS: Prostate Specific Antigen Scrn 0.976 ng/mL (0.1-4.0)
== END ==
PROVIDERS: PCP Family Medicine; Referring Provider Family Medicine; Visit Provider Family Medicine
DX: Z12.5 Encounter for screening for malignant neoplasm of prostate (principal); M25.511 Pain in right shoulder; G89.29 Other chronic pain; M25.512 Pain in left shoulder
CPT/HCPCS: 80053; 80061; 84443; 85025; G0103

== ENCOUNTER 2024-12-30 06:13 | Day surgery (SDC) | payer MEDICARE, OTHER, SELFPAY ==
[2024-12-23 12:37] VITALS: BMI 27.8
[2024-12-30 06:55] VITALS: BP 109/75; PULSE 62; RESP 16; TEMP 36.2; O2SAT 95; BMI 27.5
[2024-12-30] MEDS: LACTATED RINGERS 1,000 ML 42 ML IV (07:00)
--- NOTE | 2024-12-30 07:27 | P.HP_ITS ---
History of Present Illness History of Present Illness Chief complaint: Left Trigger Finger Release Narrative: History and Physical Day of Surgery Update The patient was met in the preoperative hold area. The history was reviewed, and the physical examination again performed. There have been no changes from what is documented in the H&P. The surgical plan was reviewed, and consent form completed. The operative site was marked. The patient desired to proceed with surgery as scheduled. [facility] Medical History Agarwal's esophagus Chronic cough Mixed hyperlipidemia Essential hypertension Surgical History Hx of laminectomy (04/29/22) S/P laminectomy with spinal fusion (05/05/18) History of cataract extraction with lens replacement (2018) Hx of blepharoplasty (08/10/24) Family History Brother Age: 75 Heart disease Atrial fibrillation Social History marital status: household members: spouse Smoking Status: Former smoker alcohol intake: current substance use type: does not use Meds Home Medications and Allergies Home Medications Medication Instructions Recorded Confirmed Type frovatriptan 2.5 mg tablet (Frova) 2.5 mg PO ONCE PRN Headache #10 01/08/23 12/30/24 Rx tabs losartan 50 mg tablet 50 mg PO DAILY #90 tabs 01/04/24 12/30/24 Rx acetaminophen 500 mg tablet 1,000 mg (2 x 500 mg) PO Q8H PRN 12/22/24 12/30/24 Rx pain #120 tabs docusate sodium 100 mg capsule 100 mg PO BID #20 caps 12/22/24 12/22/24 Rx (Colace) hydromorphone 2 mg tablet 2 mg PO Q4H #10 tabs 12/22/24 12/22/24 Rx (Dilaudid) aspirin 325 mg tablet 325 mg PO BID 12/23/24 12/30/24 History Allergies Allergy/AdvReac Type Severity Reaction Status Date / Time morphine [MORPHINE] AdvReac Mild nausea Verified 12/30/24 06:50 oxycodone [OXYCODONE] AdvReac Mild nausea Verified 12/30/24 06:50 Exam Vital Signs (past 8 hours): - 12/30/24 06:55 Temperature 97.1 F L Pulse Rate 62 Respiratory Rate 16 Blood Pressure 109/75 Pulse Oximetry 95 Oxygen Delivery Method Room Air Oxygen Delivery Method Room Air Assessment & Plan Time-Based Coding :: [TOTAL MINUTES] spent with patient and on the chart (including review of chart, obtaining history, exam, reviewing outside data, placing orders, documenting ex am and treatment plan, and counseling patient) on [DATE].
--- NOTE | 2024-12-30 07:28 | PM.PREOP ---
Pre-operative Note Interval Note History & Physical reviewed/Exam performed by Physician: Yes Changes to H&P: No
[2024-12-30] MEDS: CEFAZOLIN 2 GM/100 ML PREMIX 100 ML IV (07:48)
[2024-12-30] MEDS: LIDOCAINE 1% W/EPI 10ML 20 ML INJ (07:52)
--- NOTE | 2024-12-30 08:01 | SUR.OPER ---
Supine on padded OR bed, head on pillow, Right arm secured on padded arm boards at <90 degrees abduction, Left arm on padded arm board (draped in sterile technique for procedure), legs uncrossed, safety belt at thigh, tape over blanket over lower legs.
[2024-12-30] MEDS: BUPIVACAINE 0.25% (PF) VIAL 30 ML INJ (08:20)
[2024-12-30 08:30] VITALS: BP 104/63; PULSE 61; RESP 18; TEMP 36.4; O2SAT 95
--- NOTE | 2024-12-30 08:40 | PM.OP.1 ---
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 Surgeon: Kelby Cruz Click Yes if Unassisted: Yes Anesthesia Type: Sedation Operative Notes Findings: Large nodule on the ring finger flexor tendons Closure Type: primary Specimen(s): none sent Estimated Blood Loss (mL): 3 Tourniquet time (min): 22 Procedure in detail: Fingers Released: Left ring finger Preoperative diagnosis: Stenosing Tenosynovitis of the Above Digits Procedure performed: A1 Margareth Release of the Above Digits Postoperative diagnosis: Same Primary Surgeon: Kelby Cruz MD Secondary Surgeon: None Anesthesia: General EBL: 3 ml Tourniquet: 22 minutes @ 250 mmHg Indication For Surgery: Patient presented with triggering and pain of the affected digits. Conservative treatment did not improve symptoms to an acceptable level. The risks, benefits, and alternatives were discussed. Risks include pain, bleeding, infection, damage to nearby structures, tendon damage, nerve damage, blood vessel damage, wound healing complications, lack of symptom relief, need for further surgery, DVT, PE, stroke, and . Written consent was obtained. Operative Findings: Thickened A1 margareth of the affected digits. Triggering resolved after A1 margareth release. Procedure in Detail: The patient was met in the pre-operative hold area. Consent was verified and operative extremity was signed. Local anesthesia was [] injected. The patient then met with anesthesia and was brought back to the operating room. The patient was placed supine on the operating table. Anesthetic was administered. The extremity was then prepped and draped in the usual sterile fashion. A timeout was performed per protocol. All were in agreement and we proceeded. Local anesthesia was tested with a sharp adson pickup and found to be adequate. A longitudinal incision was made at the level of the A1 pully overlying the affected digit. Blunt dissection was made with scissors down to the tendon sheath and the tissues were spread in line with the tendon and neurovascular structures. 3 blunt retractors were placed and the A1 margareth was identified. The A1 margareth was cut sharply with a knife from the distal to the proximal edge. A complete release was confirmed with the use of an elevator. Synovitis and thickening of the tendons were seen underneath it. The finger was then flexed and extended without any catching. The wound was irrigated copiously and closed with horizontal mattress sutures. A sterile dressing was applied. Postoperative Protocol: Same day discharge Soft dressing Unlimited finger flexion and extension Dressings will stay in place until follow up appt No firm gripping for 2 weeks Sutures out at 2 weeks Manual labor at 4 weeks Kelby Cruz MD Complications: none Post-operative Condition: stable Disposition: PACU
[2024-12-30 08:42] VITALS: BP 106/70; PULSE 58; RESP 16; O2SAT 97
[2024-12-30 09:00] VITALS: BP 116/71; PULSE 55; RESP 16; TEMP 36.3; O2SAT 99
== END 2024-12-30 09:02 | disposition home or self-care (01) ==
PROVIDERS: PCP Family Medicine; Referring Provider Orthopaedic Surgery; Visit Provider Orthopaedic Surgery
PROC: (CPT 26055; principal; 2024-12-30 07:45)
DX: M65.342 Trigger finger, left ring finger (principal); M65.842 Other synovitis and tenosynovitis, left hand
CPT/HCPCS: 26055; J0690; J2704; J3010